=== PATIENT | female | born 1930 | race Caucasian/White ===

== ENCOUNTER 2018-08-16 17:26 | Emergency (ER) | payer OTHER ==
[~2018-08-16] VITALS: Ht 154.9 cm; Wt 65.8 kg
[~2018-08-16 17:26] MED LIST: ADULT LOW DOSE81 MG PO; ALLEGRA180 MG PO; COUMADIN4 MG PO; COZAAR25 MG PO; ISOSORBIDE DINI30 MG PO; LANOXIN250 MCG PO; LASIX20 MG PO; MUCINEX600 MG; OMEPRAZOLE MAGN20 MG PO; PHAZYME180 MG PO; SENOKOT8.6 MG PO; TENORMIN25 MG PO; VERAMYST10 GM; ZOCOR20 MG PO; ZOLOFT25 MG PO
--- OUTSIDE RECORDS SUMMARY | 2018-08-16 17:29 | XMS REPORT ---
Author Author [facility] Address Unknown Phone Unavailable Care Team Providers Care Warranty Manager Name Role Phone ALY TREVIÑO Unavailable Unavailable Payers Payer Name Policy Type Policy Number Effective Date Expiration Date Problems This patient has no known problems. Allergies, Adverse Reactions, Alerts Allergy Name Allergy Type Status Severity Reaction(s) Onset Date Inactive Date Treating Clinician Comments estrogens, conjugated DA Active MO 2018-04-25 00:00:00 codeine DA Active MO 2018-04-25 00:00:00 prednisone DA Active MO 2018-04-25 00:00:00 neomycin DA Active U 2018-04-25 00:00:00 bacitracin DA Active U 2018-04-25 00:00:00 clavulanic acid DA Active MO 2018-04-25 00:00:00 pravastatin DA Active U 2018-04-25 00:00:00 amoxicillin DA Active MO 2018-04-25 00:00:00 estrogens, conjugated DA Active MO 2017-12-25 00:00:00 codeine DA Active MO 2017-12-25 00:00:00 prednisone DA Active MO 2017-12-25 00:00:00 neomycin DA Active U 2017-12-25 00:00:00 bacitracin DA Active U 2017-12-25 00:00:00 clavulanic acid DA Active MO 2017-12-25 00:00:00 pravastatin DA Active U 2017-12-25 00:00:00 amoxicillin DA Active MO 2017-12-25 00:00:00 Medications This patient has no known medications. Results Test Description Test Time Test Comments Text Results Atomic Results Result Comments - XR SHOULDER 2 + V LT 2018-07-26 07:22:00 FAX: Evan Del Rosario MD [phone] [place]: St: REG Name: MARIANELA VALENTIN [facility] : 1930 Age/S: 88/F [address] [place] [address] Unit #: [id number] Loc: [place] [address] Phys: Evan Del Rosario MD Acct: [id number] Dis Date: Status: REG ER PHONE #: [phone] Exam Date: 07/26/2018713 FAX #: [phone] Reason: pain after fall EXAMS: CPT CODE: [id number] XR SHOULDER 2 + V LT [id number] Study: - XR SHOULDER 2 + V LT 07/26/2018 7:00 AM Patient Name: MARIANELA VALENTIN MR: [id number] DATE: 07/26/2018 7:00 AM : 1930; Age: 88 years y/o Female Ordering Physician: Evan Del Rosario MD Clinical Indication: pain after fall Comparison: Chest April 25, 2018 LEFT SHOULDER, 3 Views: Degenerative osteophyte is again seen along the inferior margin of the humeral head. No definite acute fracture or dislocation. Osteopenia. If there is further concern, recommend follow-up CT or MRI for complete assessment. SL: [id number] at 0722 Reported and signed by: Opal Pierce D.O. CC: Evan Del Rosario MD Technologist: RT Isiah(Arun) Trnscrd Date/Time/By: 07/26/2018 (721) : By: Jose [email or web address] Orig Print D/T: S: 07/26/2018 (0725) PAGE 1 Signed Report - CT HEAD/BRAIN W/O CONT 2018-07-26 06:07:00 Name: MARIANELA VALENTIN : 1930 Age/S: 88 / F [address] [place] [address] Unit #: [id number] Loc: [place] [address] Phys: Inocencio Ellison MD Acct: [id number] Dis Date: Status: PRE ER PHONE #: [phone] Exam Date: 07/26/2018 0551 FAX #: [phone] Reason: pain with trauma EXAMS: CPT CODE: [id number] CT HEAD/BRAIN W/O CONT [id number] EXAM: CT, CT head/brain without contrast: 3 12/26/2018 HISTORY: pain with trauma COMPARISON: 04/25/2018. TECHNIQUE: CT images were obtained from the foramen magnum to the vertex without the use of intravenous contrast on a multidetector CT. CT imaging was performed with exposure control parameters to reduce radiation dose. Coronal and sagittal reconstructions were obtained. CT radiation dose DLP: 419.70 mGy-cm FINDINGS: Beam hardening artifact limits the optimal evaluation of base of brain and posterior fossa. BRAIN PARENCHYMA: Mild diffuse brain atrophy seen. Moderately severe nonspecific low density in bilateral periventricular white matter, most likely due to chronic small vessel ischemic changes No focal mass lesions on this noncontrast head CT. No mass effect, midline shift or edema. There are no intra-axial or extra- axial fluid collections, intraventricular or intraparenchymal hemorrhage. No low attenuation demarcating areas on this non-contrast CT to suggest subacute stroke. Calcified plaques are seen in the intracranial internal carotid arteries VENTRICLES: The lateral ventricles, third and fourth ventricles appear unremarkable. The basilar cisterns are normal. ORBITS, MASTOIDS AND PARANASAL SINUSES: The visualized orbits are unremarkable. Mild mucosal thickening and fluid in bilateral ethmoid sinuses. The mastoid air cells are clear. SKULL: There are no osseous abnormalities. If there is further concern for intracranial pathology or acute stroke, MRI of the brain may be performed for complete assessment. IMPRESSION: PAGE 1 Signed Report (CONTINUED) Name: MARIANELA VALENTIN : 1930 Age/S: 88 / F [address] [place] [address] Blvd Unit #: [id number] Loc: [place] [address] Phys: Inocencio Ellison MD Acct: [id number] Dis Date: Status: PRE ER PHONE #: [phone] Exam Date: 07/26/2018 0551 FAX #: [phone] Reason: pain with trauma EXAMS: CPT CODE: [id number] CT HEAD/BRAIN W/O CONT [id number] <Continued> 1. No acute intracranial abnormality. No noncontrast CT evidence of mass, hemorrhage or subacute stroke. 2. Moderately severe chronic small vessel ischemic changes. Mild diffuse atrophy. 3. Mild bilateral ethmoid sinusitis, probably chronic. SL: LALA at 0607 Reported and signed by: Tim Washington M.D. CC: Inocencio Ellison MD Technologist:RT Shanna(R) CTDI: DLP: Trnscb Date/Time: 07/26/2018 (06) [email or web address] Orig Print D/T: S: 07/26/2018 (609) CTDI: DLP: PAGE 2 Signed Report PROTHROMBIN TIME/INR 2018-04-13 05:44:00 PROTIME (BEAKER) (test vkze=988) 21.5 seconds 11.7-14.7 INR (BEAKER) (test ispv=583) 1.9 <=5.9 RECOMMENDED COUMADIN/WARFARIN INR THERAPY RANGESSTANDARD DOSE: 2.0 - 3.0 Inclu renée: PROPHYLAXIS for venous thrombosis, systemic embolization; TREATMENT for torsten ous thrombosis and/or pulmonary embolus.HIGH RISK: Target INR is 2.5-3.5 for pat ients with mechanical heart valves.PROTHROMBIN TIME/[id number] 05:13:00* Test Item Value Reference Range Comments PROTIME (BEAKER) (test tubq=977) 25.5 seconds 11.7-14.7 INR (BEAKER) (test bjej=735) 2.3 <=5.9 RECOMMENDED COUMADIN/WARFARIN INR THERAPY RANGESSTANDARD DOSE: 2.0 - 3.0 Inclu renée: PROPHYLAXIS for venous thrombosis, systemic embolization; TREATMENT for torsten ous thrombosis and/or pulmonary embolus.HIGH RISK: Target INR is 2.5-3.5 for pat ients with mechanical heart valves.BASIC METABOLIC [id number] 06:03:00* Test Item Value Reference Range Comments SODIUM (BEAKER) (test vaaz=035) 132 meq/L 136-145 POTASSIUM (BEAKER) (test nxlz=422) 4.2 meq/L 3.5-5.1 CHLORIDE (BEAKER) (test spdv=103) 99 meq/L 98-107 CO2 (BEAKER) (test oaqz=891) 25 meq/L 22-29 BLOOD UREA NITROGEN (BEAKER) (test izdw=312) 15 mg/dL 7-21 CREATININE (BEAKER) (test qsuo=234) 0.83 mg/dL 0.57-1.25 GLUCOSE RANDOM (BEAKER) (test vfsu=354) 88 mg/dL 70-105 CALCIUM (BEAKER) (test grlb=321) 8.8 mg/dL 8.4-10.2 EGFR (BEAKER) (test ffgc=8361) 65 mL/min/1.73 sq m ESTIMATED GFR IS NOT ACCURATE CREATININE CLEARANCE IN PREDICTING GLOMERULAR FILTRATION RATE. ESTIMATED GFR IS NOT APPLICABLE FOR DIALYSIS PATIENTS. PROTHROMBIN TIME/[id number] 05:56:00* Test Item Value Reference Range Comments PROTIME (BEAKER) (test faci=777) 29.1 seconds 11.7-14.7 INR (BEAKER) (test scby=402) 2.8 <=5.9 RECOMMENDED COUMADIN/WARFARIN INR THERAPY RANGESSTANDARD DOSE: 2.0 - 3.0 Inclu renée: PROPHYLAXIS for venous thrombosis, systemic embolization; TREATMENT for torsten ous thrombosis and/or pulmonary embolus.HIGH RISK: Target INR is 2.5-3.5 for pat ients with mechanical heart valves.CBC W/PLT COUNT & AUTO [id number] 05:39:00* Test Item Value Reference Range Comments WHITE BLOOD CELL COUNT (BEAKER) (test mnzo=327) 7.9 K/ L 3.5-10.5 RED BLOOD CELL COUNT (BEAKER) (test gnkg=964) 3.72 M/ L 3.93-5.22 HEMOGLOBIN (BEAKER) (test dgyz=187) 11.4 GM/DL 11.2-15.7 HEMATOCRIT (BEAKER) (test wxzs=627) 34.6 % 34.1-44.9 MEAN CORPUSCULAR VOLUME (BEAKER) (test vvic=947) 93.0 fL 79.4-94.8 MEAN CORPUSCULAR HEMOGLOBIN (BEAKER) (test spdt=494) 30.6 pg 25.6-32.2 MEAN CORPUSCULAR HEMOGLOBIN CONC (BEAKER) (test lepf=440) 32.9 GM/DL 32.2-35.5 RED CELL DISTRIBUTION WIDTH (BEAKER) (test csbr=848) 13.7 % 11.7-14.4 PLATELET COUNT (BEAKER) (test pnxf=793) 247 K/CU MM 150-450 MEAN PLATELET VOLUME (BEAKER) (test scoa=883) 9.5 fL 9.4-12.3 NUCLEATED RED BLOOD CELLS (BEAKER) (test flgw=544) 0 /100 WBC 0-0 NEUTROPHILS RELATIVE PERCENT (BEAKER) (test dihc=145) 55 % LYMPHOCYTES RELATIVE PERCENT (BEAKER) (test lcwu=746) 30 % MONOCYTES RELATIVE PERCENT (BEAKER) (test hwdy=601) 9 % EOSINOPHILS RELATIVE PERCENT (BEAKER) (test daxg=235) 5 % BASOPHILS RELATIVE PERCENT (BEAKER) (test lddo=190) 1 % NEUTROPHILS ABSOLUTE COUNT (BEAKER) (test tcgz=632) 4.35 K/ L 1.56-6.13 LYMPHOCYTES ABSOLUTE COUNT (BEAKER) (test ljxt=582) 2.38 K/ L 1.18-3.74 MONOCYTES ABSOLUTE COUNT (BEAKER) (test byth=843) 0.69 K/ L 0.24-0.36 EOSINOPHILS ABSOLUTE COUNT (BEAKER) (test zyom=408) 0.43 K/ L 0.04-0.36 BASOPHILS ABSOLUTE COUNT (BEAKER) (test lzwi=505) 0.07 K/ L 0.01-0.08 IMMATURE GRANULOCYTES-RELATIVE PERCENT (BEAKER) (test srwt=4867) 0 % 0-1 PROTHROMBIN TIME/[id number] 06:11:00* Test Item Value Reference Range Comments PROTIME (BEAKER) (test kwdp=201) 26.2 seconds 11.7-14.7 INR (BEAKER) (test sqew=434) 2.4 <=5.9 RECOMMENDED COUMADIN/WARFARIN INR THERAPY RANGESSTANDARD DOSE: 2.0 - 3.0 Inclu renée: PROPHYLAXIS for venous thrombosis, systemic embolization; TREATMENT for torsten ous thrombosis and/or pulmonary embolus.HIGH RISK: Target INR is 2.5-3.5 for pat ients with mechanical heart valves.CT, EXTREMITY, LOWER WITHOUT CONTRAST, RIGHT 2018 08:17:00FINAL REPORT INDICATION:88-year-old female with right hip pain after trauma. COMPARISON: Right hip radiograph one view April 08, 2018 TECHNIQUE: CT of the right lower extremity (hip) was performed WITHOUT contrast. The exam was performed according to our department dose-optimization protocol, which includes automated exposure control, adjustments of mA and kV according to patient size. Iterative reconstructions are also sometimes employed. FINDINGS / IMPRESSION:There is an incomplete fracture of the anterior cortex at the right femoral head neck junction. There is near-complete loss of right hip joint space without bone on bone contact. Femoral head osteophyte formation and anterior acetabular subchondral cyst formation is noted. Muscles and tendons of the right hip are grossly intact. Calcified atherosclerotic plaque of the right common femoral artery is noted. Signed: Adal Ramírez MDReport Verified Date/Time: 2018 08:17:16 Reading Location: [address] Ortho Consult Reading Room C METABOLIC PANEL 2018 06:50:00* Test Item Value Reference Range Comments SODIUM (BEAKER) (test jhyq=412) 133 meq/L 136-145 POTASSIUM (BEAKER) (test uxil=028) 4.3 meq/L 3.5-5.1 CHLORIDE (BEAKER) (test pvyj=040) 101 meq/L 98-107 CO2 (BEAKER) (test bfge=358) 27 meq/L 22-29 BLOOD UREA NITROGEN (BEAKER) (test aonl=785) 14 mg/dL 7-21 CREATININE (BEAKER) (test ijcx=724) 0.82 mg/dL 0.57-1.25 GLUCOSE RANDOM (BEAKER) (test jgzm=090) 84 mg/dL 70-105 CALCIUM (BEAKER) (test jjyu=530) 9.1 mg/dL 8.4-10.2 EGFR (BEAKER) (test quis=8149) 66 mL/min/1.73 sq m ESTIMATED GFR IS NOT ACCURATE CREATININE CLEARANCE IN PREDICTING GLOMERULAR FILTRATION RATE. ESTIMATED GFR IS NOT APPLICABLE FOR DIALYSIS PATIENTS. PROTHROMBIN TIME/[id number] 05:32:00* Test Item Value Reference Range Comments PROTIME (BEAKER) (test plpp=209) 25.5 seconds 11.7-14.7 INR (BEAKER) (test unbj=651) 2.3 <=5.9 RECOMMENDED COUMADIN/WARFARIN INR THERAPY RANGESSTANDARD DOSE: 2.0 - 3.0 Inclu renée: PROPHYLAXIS for venous thrombosis, systemic embolization; TREATMENT for torsten ous thrombosis and/or pulmonary embolus.HIGH RISK: Target INR is 2.5-3.5 for pat ients with mechanical heart valves.CBC W/PLT COUNT & AUTO [id number] 05:27:00* Test Item Value Reference Range Comments WHITE BLOOD CELL COUNT (BEAKER) (test oqaz=302) 8.5 K/ L 3.5-10.5 RED BLOOD CELL COUNT (BEAKER) (test ksha=500) 3.84 M/ L 3.93-5.22 HEMOGLOBIN (BEAKER) (test oeeo=260) 11.8 GM/DL 11.2-15.7 HEMATOCRIT (BEAKER) (test ceqb=018) 35.9 % 34.1-44.9 MEAN CORPUSCULAR VOLUME (BEAKER) (test alni=926) 93.5 fL 79.4-94.8 MEAN CORPUSCULAR HEMOGLOBIN (BEAKER) (test zgdo=533) 30.7 pg 25.6-32.2 MEAN CORPUSCULAR HEMOGLOBIN CONC (BEAKER) (test fbqn=149) 32.9 GM/DL 32.2-35.5 RED CELL DISTRIBUTION WIDTH (BEAKER) (test khic=118) 13.9 % 11.7-14.4 PLATELET COUNT (BEAKER) (test byes=207) 260 K/CU MM 150-450 MEAN PLATELET VOLUME (BEAKER) (test egwo=241) 9.6 fL 9.4-12.3 NUCLEATED RED BLOOD CELLS (BEAKER) (test jkiu=777) 0 /100 WBC 0-0 NEUTROPHILS RELATIVE PERCENT (BEAKER) (test vvku=837) 64 % LYMPHOCYTES RELATIVE PERCENT (BEAKER) (test yvsi=893) 24 % MONOCYTES RELATIVE PERCENT (BEAKER) (test tfuo=717) 7 % EOSINOPHILS RELATIVE PERCENT (BEAKER) (test gain=033) 4 % BASOPHILS RELATIVE PERCENT (BEAKER) (test ghxa=925) 1 % NEUTROPHILS ABSOLUTE COUNT (BEAKER) (test ldak=919) 5.40 K/ L 1.56-6.13 LYMPHOCYTES ABSOLUTE COUNT (BEAKER) (test unhx=632) 2.05 K/ L 1.18-3.74 MONOCYTES ABSOLUTE COUNT (BEAKER) (test xnet=119) 0.61 K/ L 0.24-0.36 EOSINOPHILS ABSOLUTE COUNT (BEAKER) (test zltp=144) 0.34 K/ L 0.04-0.36 BASOPHILS ABSOLUTE COUNT (BEAKER) (test wbuw=253) 0.05 K/ L 0.01-0.08 IMMATURE GRANULOCYTES-RELATIVE PERCENT (BEAKER) (test uvlp=4429) 0 % 0-1 CT, BRAIN, WITHOUT [id number] 21:42:00FINAL REPORT EXAMINATION NONCONTRAST HEAD CT SCAN CLINICAL HISTORY:Headache, traumatic injury. COMPARISON CT: 04/07/2018 EPISODE OF CARE: Initial TECHNIQUE: Axial tomographic images were obtained through the brain from the vertex to the skull base without intravenous contrast. The exam was performed according to our departmental dose optimization program which includes automated exposure control, adjustment of the mA and/or kV according to patient's size and/or use of iterative reconstructive technique. FINDINGS: Generalized volume loss, extensive deep white matter changes, small white nuclei lacunar infarcts and intracranial calcific atherosclerosis are again noted. No evidence of acute intracranial hemorrhage, mass effect, cerebral edema, midline shift, hydroceph alus or abnormal extra-axial fluid collection. Although there are no definite fi ndings to suggest evolving ischemic injury, see the is not sensitive for the det ection of early or small infarcts. Minimal mucosal thickening is again noted inv olving the ethmoid air cells. The tympanic cavities and mastoid air cells are we ll pneumatized. There are bilateral minimally displaced mildly depressed nasal b one fractures, chronicity indeterminate. Mandibular condyles project anatomicall y. Degenerative osteoarthritic changes are again noted at the temporal mandibula r joints. IMPRESSION: No specific evidence of an acute intracranial process. Ernie ateral nasal bone fractures, chronicity indeterminate. Chronic findings as detai led above. Signed: Zeferino Rodriguez Verified Date/Time: 04/08/2018 21:42:2 0 Reading Location: [address] Reading Room Electronically sig carline by: ZEFERINO RODRIGUEZ M.D. on 04/08/2018 09:42 PM RAD, HIP, 1 VIEW, RIGHT 2018-04-08 21:20:00Reason for exam:->post fallpatient c/o r hip painFINAL REPORT Right hip 1 view 04/08/2018 at 2031 CLINICAL HISTORY: post fall COMPARISON: None available IMPRESSION: There is no evident fracture or malalignment, although absence of an orthogonal view does not allow for complete exclusion of nondisplaced fracture. There are no osteolytic or osteoblastic lesions. 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 The visualized soft tissue is unremarkable. If there is persistent clinical concern for acute abnormality, further evaluation with CT is recommended. Swetha d: Andrzej Monson Verified Date/Time: 04/08/2018 21:20:36 Reading Loc ation: [facility] Radiology Reading Room , CHEST, 1 VIEW, NON [id number] 20:55:00Reason for exam:->post fallShould this be performed at the bedside?->Yes FINAL REPORT Chest, 1 view, 04/08/2018 8:50 PM. History: Fall. Comparison: 04/07/2018. Discussion: The cardiomediastinal silhouette and pulmonary vasculature are within normal limits for a portable exam. There is ca lcification of the aortic knob. There is biapical pleural thickening. Linear opa cities are present at the right lung base. The lungs are otherwise clear without evidence of consolidation or effusion. There is no evidence of a pneumothorax. Left subclavian single lead pacer is present. The soft tissues and osseous struc tures are intact. IMPRESSION: No acute cardiopulmonary abnormality. Signed: Arnulfo Rivas MDReport Verified Date/Time: 04/08/2018 20:55:25 Reading Location: [facility] B1 C013W Consult Reading Room AWAKE AND [id number] 14:48:00Reason for exam:->episode of right leg weaknessShould this be performed at the bedside?-> YesDate(s) of EE04/08/2018 DATE OF REPORT: 04/08/2018 ACC: [id number] EEG Number: [id number] Start time: 2:05 PM Stop time: 2:26 PM ICD-10: R56.9 CPT Code: 08788 HISTORY: 87 year old female with history of prior stroke with residual deficit, who presents with right sided weakness and leaning to right side. She has URI. MEDICATIONS THAT COULD AFFECT EEG: Zoloft TECHNICAL SUMMARY: This is a digital video-EEG recorded with 32 input channels reviewed with bipolar and referential montages using the modified combinatorial system nomenclature. DESCRIPTION OF RECORD: During the maximally alert state, a 9 Hz posterior dominant rhythm was seen that was symmetric, reactive to eye opening and well regulated. More anteriorly, low voltage frontocentral beta predominated. Drowsiness was characterized by alpha attenuation and increased frontocentral theta. Stage 2 sleep was captured, including symmetric sleep spindles. SIGNIFICANT VIDEO EVENTS: none SIGNIFICANT ELECTROCARDIOGRAM EVENTS: None HV: Hyperventilation was not performed. PHOTIC STIMULATION: Photic stimulation was not performed. IMPRESSION: Normal Awake and Asleep EEG. CLINICAL CORRELATION: An EEG without epileptiform discharges does not exclude the possibility of epilepsy. If the clinical suspicion of epilepsy remains, consider additional EEG recordings. Gill Paul MD Neurophysiology Attending HROMBIN TIME/[id number] 13:01:00* Test Item Value Reference Range Comments PROTIME (BEAKER) (test rwax=782) 25.1 seconds 11.7-14.7 INR (BEAKER) (test eihj=529) 2.3 <=5.9 RECOMMENDED COUMADIN/WARFARIN INR THERAPY RANGESSTANDARD DOSE: 2.0 - 3.0 Inclu renée: PROPHYLAXIS for venous thrombosis, systemic embolization; TREATMENT for torsten ous thrombosis and/or pulmonary embolus.HIGH RISK: Target INR is 2.5-3.5 for pat ients with mechanical heart valves.TROPONIN [id number] 10:13:00* Test Item Value Reference Range Comments TROPONIN I (BEAKER) (test mwbk=570) 0.04 ng/mL 0.00-0.03 CREATINE KINASE (CK)2018-04-08 10:08:00* Test Item Value Reference Range Comments CREATINE KINASE TOTAL (BEAKER) (test myjs=888) 75 U/L 29-200 BASIC METABOLIC [id number] 05:01:00* Test Item Value Reference Range Comments SODIUM (BEAKER) (test yabx=105) 131 meq/L 136-145 POTASSIUM (BEAKER) (test ubqt=996) 4.5 meq/L 3.5-5.1 Specimen slightly hemolyzed CHLORIDE (BEAKER) (test uyal=459) 100 meq/L 98-107 CO2 (BEAKER) (test ufus=512) 25 meq/L 22-29 BLOOD UREA NITROGEN (BEAKER) (test suad=701) 13 mg/dL 7-21 CREATININE (BEAKER) (test rupz=282) 0.81 mg/dL 0.57-1.25 Specimen slightly hemolyzed GLUCOSE RANDOM (BEAKER) (test myrt=076) 89 mg/dL 70-105 CALCIUM (BEAKER) (test qjdj=048) 9.2 mg/dL 8.4-10.2 EGFR (BEAKER) (test vznm=6755) 67 mL/min/1.73 sq m ESTIMATED GFR IS NOT ACCURATE CREATININE CLEARANCE IN PREDICTING GLOMERULAR FILTRATION RATE. ESTIMATED GFR IS NOT APPLICABLE FOR DIALYSIS PATIENTS. FastingLIPID [id number] 05:01:00* Test Item Value Reference Range Comments TRIGLYCERIDES (BEAKER) (test khqq=036) 70 mg/dL Specimen slightly hemolyzed CHOLESTEROL (BEAKER) (test vwnu=026) 130 mg/dL Specimen slightly hemolyzed HDL CHOLESTEROL (BEAKER) (test cqfv=298) 50 mg/dL LDL CHOLESTEROL CALCULATED (BEAKER) (test kusk=527) 66 mg/dL Triglyceride Reference Range: Low Risk <150 Borderline 150-199 High Risk 200-499 Very High Risk >=500Cholesterol Reference Range: Low Risk <200 Borderline 200-239 High Risk >240HDL Cholesterol Reference Range: Low Risk >=60 High Risk <40LDL Cholesterol Reference Range: Optimal <100 Near Optimal 100-129 Borderline 130-159 High 160-189 Very High >=190 Fasting CBC W/PLT COUNT & AUTO [id number] 04:44:00* Test Item Value Reference Range Comments WHITE BLOOD CELL COUNT (BEAKER) (test ycfp=986) 8.1 K/ L 3.5-10.5 RED BLOOD CELL COUNT (BEAKER) (test keft=975) 3.49 M/ L 3.93-5.22 HEMOGLOBIN (BEAKER) (test fyxq=092) 10.8 GM/DL 11.2-15.7 HEMATOCRIT (BEAKER) (test wjbt=494) 32.4 % 34.1-44.9 MEAN CORPUSCULAR VOLUME (BEAKER) (test fibz=565) 92.8 fL 79.4-94.8 MEAN CORPUSCULAR HEMOGLOBIN (BEAKER) (test pgyg=915) 30.9 pg 25.6-32.2 MEAN CORPUSCULAR HEMOGLOBIN CONC (BEAKER) (test jakx=570) 33.3 GM/DL 32.2-35.5 RED CELL DISTRIBUTION WIDTH (BEAKER) (test gnur=045) 13.8 % 11.7-14.4 PLATELET COUNT (BEAKER) (test xsks=222) 219 K/CU MM 150-450 MEAN PLATELET VOLUME (BEAKER) (test qdnn=464) 9.9 fL 9.4-12.3 NUCLEATED RED BLOOD CELLS (BEAKER) (test yuba=900) 0 /100 WBC 0-0 NEUTROPHILS RELATIVE PERCENT (BEAKER) (test hazr=630) 58 % LYMPHOCYTES RELATIVE PERCENT (BEAKER) (test soxw=544) 28 % MONOCYTES RELATIVE PERCENT (BEAKER) (test wzkd=275) 8 % EOSINOPHILS RELATIVE PERCENT (BEAKER) (test emfo=385) 4 % BASOPHILS RELATIVE PERCENT (BEAKER) (test glgy=790) 1 % NEUTROPHILS ABSOLUTE COUNT (BEAKER) (test bumm=242) 4.71 K/ L 1.56-6.13 LYMPHOCYTES ABSOLUTE COUNT (BEAKER) (test naas=992) 2.26 K/ L 1.18-3.74 MONOCYTES ABSOLUTE COUNT (BEAKER) (test tuhv=303) 0.67 K/ L 0.24-0.36 EOSINOPHILS ABSOLUTE COUNT (BEAKER) (test zxzr=584) 0.33 K/ L 0.04-0.36 BASOPHILS ABSOLUTE COUNT (BEAKER) (test lcbc=881) 0.07 K/ L 0.01-0.08 IMMATURE GRANULOCYTES-RELATIVE PERCENT (BEAKER) (test vylh=3954) 0 % 0-1 URINALYSIS W/ [id number] 22:42:00* Test Item Value Reference Range Comments COLOR (BEAKER) (test wias=169) Yellow CLARITY (BEAKER) (test nmvw=538) Clear SPECIFIC GRAVITY UA (BEAKER) (test fwkg=574) 1.006 1.001-1.035 PH UA (BEAKER) (test kdqw=792) 6.5 5.0-8.0 PROTEIN UA (BEAKER) (test rwvq=374) Negative Negative GLUCOSE UA (BEAKER) (test pbys=985) Negative Negative KETONES UA (BEAKER) (test gwzw=357) Negative Negative BILIRUBIN UA (BEAKER) (test rnlh=192) Negative Negative BLOOD UA (BEAKER) (test bhwa=894) Negative Negative NITRITE UA (BEAKER) (test lycy=167) Negative Negative LEUKOCYTE ESTERASE UA (BEAKER) (test obsw=014) Small Negative UROBILINOGEN UA (BEAKER) (test xmxz=252) 0.2 mg/dL 0.2-1.0 RBC UA (BEAKER) (test audj=612) 1 /HPF WBC UA (BEAKER) (test ytec=945) 2 /HPF SQUAMOUS EPITHELIAL (BEAKER) (test icnx=160) 1 /HPF SOURCE(BEAKER) (test fwmo=0394) Urine, Voided TROPONIN [id number] 22:24:00* Test Item Value Reference Range Comments TROPONIN I (BEAKER) (test mczr=152) 0.09 ng/mL 0.00-0.03 RAD, CHEST, 1 VIEW, NON [id number] 16:51:00Reason for exam:->EXTREMITY WEAKNESSFINAL REPORT INDICATION: EXTREMITY WEAKNESS COMPARISON: July 11, 2005 TECHNIQUE: Single frontal view of the chest. FINDINGS: Lungs and pleura: Clear lungs. No effusion.Heart and mediastinum: Normal heart size. Unremarkable mediastinal contours.Osseous structures: No acute abnormality.Other: None. IMPRESSION: No acute intrathoracic abnormality. Signed: JR Tiffanie, Ashish SUAREZeport Verified Date/Time: 04/07/2018 16:51:50 Reading Location: [address] Consult Reading Room B-TYPE NATRIURETIC FACTOR (BNP)2018-04-07 16:48:00* Test Item Value Reference Range Comments B-TYPE NATRIURETIC PEPTIDE (BEAKER) (test assu=549) 576 pg/mL 0-100 TROPONIN [id number] 16:46:00* Test Item Value Reference Range Comments TROPONIN I (BEAKER) (test wwza=340) 0.04 ng/mL 0.00-0.03 [id number] 16:38:00* Test Item Value Reference Range Comments MAGNESIUM (BEAKER) (test ojyg=620) 2.1 mg/dL 1.6-2.6 BASIC METABOLIC [id number] 16:38:00* Test Item Value Reference Range Comments SODIUM (BEAKER) (test qqsx=045) 132 meq/L 136-145 POTASSIUM (BEAKER) (test yeub=088) 4.9 meq/L 3.5-5.1 CHLORIDE (BEAKER) (test xnzx=874) 98 meq/L 98-107 CO2 (BEAKER) (test hedt=765) 29 meq/L 22-29 BLOOD UREA NITROGEN (BEAKER) (test lfll=180) 16 mg/dL 7-21 CREATININE (BEAKER) (test tvoj=481) 1.00 mg/dL 0.57-1.25 GLUCOSE RANDOM (BEAKER) (test ivhk=674) 94 mg/dL 70-105 CALCIUM (BEAKER) (test cadi=784) 9.9 mg/dL 8.4-10.2 EGFR (BEAKER) (test kehm=6918) 52 mL/min/1.73 sq m ESTIMATED GFR IS NOT ACCURATE CREATININE CLEARANCE IN PREDICTING GLOMERULAR FILTRATION RATE. ESTIMATED GFR IS NOT APPLICABLE FOR DIALYSIS PATIENTS. PT/[id number] 16:38:00* Test Item Value Reference Range Comments PROTIME (BEAKER) (test mxfg=591) 23.6 seconds 11.7-14.7 INR (BEAKER) (test ynnk=409) 2.1 <=5.9 PARTIAL THROMBOPLASTIN TIME (BEAKER) (test yqmv=567) 35.1 seconds 22.5-36.0 RECOMMENDED COUMADIN/WARFARIN INR THERAPY RANGESSTANDARD DOSE: 2.0 - 3.0 Inclu renée: PROPHYLAXIS for venous thrombosis, systemic embolization; TREATMENT for torsten ous thrombosis and/or pulmonary embolus.HIGH RISK: Target INR is 2.5-3.5 for pat ients with mechanical heart valves.CT, BRAIN, WITHOUT [id number] 16:34:00Reason for exam:->right leg weaknessWhat is the patient's sedation requirement?->No SedationFINAL REPORT CT head without contrast 04/07/2018 4:32 PM CLINICAL HISTORY: Sensation loss, right leg weakness TECHNIQUE: Axial noncontrast CT images through the head were obtained. This examination was performed according to our departmental dose optimization program, which includes automated exposure control, adjustment of the mA and/or kV according to patient size, and/or use of iterated reconstruction technique. COMPARISON: None available FINDINGS: There is no hemorrhage, extra-axial collection, mass, hydrocephalus, or midline shift. There is relatively extensive microvascular ischemia in the supratentorial white matter, deep white nuclei, and radha. There is atherosclerotic calcification of the intracranial arterial vasculature. There is generalized parenchymal volume loss. The visualized paranasal sinuses and mastoid air cells are well aerated. The skull is intact. IMPRESSION: No intracranial hemorrhage or mass effect. Microvascular ischemia, which can be further characterized with MRI if clinically indicated. Signed: Andrzej Monson Verified Date/Time: 04/07/2018 16:34:47 Reading Location: [facility] Radiology Reading Room W/PLT COUNT & AUTO [id number] 16:25:00* Test Item Value Reference Range Comments WHITE BLOOD CELL COUNT (BEAKER) (test nlow=353) 9.4 K/ L 3.5-10.5 RED BLOOD CELL COUNT (BEAKER) (test bxmp=675) 3.93 M/ L 3.93-5.22 HEMOGLOBIN (BEAKER) (test trry=654) 12.3 GM/DL 11.2-15.7 HEMATOCRIT (BEAKER) (test rbyu=659) 37.1 % 34.1-44.9 MEAN CORPUSCULAR VOLUME (BEAKER) (test hbxe=004) 94.4 fL 79.4-94.8 MEAN CORPUSCULAR HEMOGLOBIN (BEAKER) (test nufg=590) 31.3 pg 25.6-32.2 MEAN CORPUSCULAR HEMOGLOBIN CONC (BEAKER) (test vqfl=667) 33.2 GM/DL 32.2-35.5 RED CELL DISTRIBUTION WIDTH (BEAKER) (test omxo=265) 13.8 % 11.7-14.4 PLATELET COUNT (BEAKER) (test lqwl=658) 244 K/CU MM 150-450 MEAN PLATELET VOLUME (BEAKER) (test zwab=283) 9.5 fL 9.4-12.3 NUCLEATED RED BLOOD CELLS (BEAKER) (test vwqn=491) 0 /100 WBC 0-0 NEUTROPHILS RELATIVE PERCENT (BEAKER) (test akub=734) 70 % LYMPHOCYTES RELATIVE PERCENT (BEAKER) (test zjig=580) 20 % MONOCYTES RELATIVE PERCENT (BEAKER) (test gwev=551) 8 % EOSINOPHILS RELATIVE PERCENT (BEAKER) (test khfk=844) 2 % BASOPHILS RELATIVE PERCENT (BEAKER) (test sdmq=681) 1 % NEUTROPHILS ABSOLUTE COUNT (BEAKER) (test rekr=625) 6.56 K/ L 1.56-6.13 LYMPHOCYTES ABSOLUTE COUNT (BEAKER) (test dmez=733) 1.87 K/ L 1.18-3.74 MONOCYTES ABSOLUTE COUNT (BEAKER) (test tjdf=692) 0.72 K/ L 0.24-0.36 EOSINOPHILS ABSOLUTE COUNT (BEAKER) (test jqts=038) 0.20 K/ L 0.04-0.36 BASOPHILS ABSOLUTE COUNT (BEAKER) (test beqg=462) 0.05 K/ L 0.01-0.08 IMMATURE GRANULOCYTES-RELATIVE PERCENT (BEAKER) (test pxrt=3864) 0 % 0-1
--- OUTSIDE RECORDS SUMMARY | 2018-08-16 17:29 | XMS REPORT | Clinical Summary ---
Author Author TONY Urban RemedyBenewah Community HospitalGuam Pak ExpressForrest City Medical CenterProject InsidersProvidence Centralia [facility] Address Unknown Phone Unavailable Care Team Providers Care Web Ui Software Engineer Name Role Phone Redd Marquez MD PCP Unavailable Allergies Comments Active Allergy Reactions Severity Noted Date Amoxicillin-Pot 04/27/2013 Clavulanate Codeine 04/27/2013 Benzalkonium Chloride 04/27/2013 Pravastatin 04/27/2013 Medications End Date Status Medication Sig Dispensed Refills Start Date Active warfarin (COUMADIN) 4 MG Take 2 mg by 0 tablet mouth 4 3 (four) times a week Sat, sun, tu, th. Active losartan (COZAAR) 25 MG Take 25 mg by 0 tablet mouth nightly 3 . Active fluticasone (FLONASE) 50 2 sprays by 0 mcg/actuation nasal spray Nasal route 3 daily . Active atenolol (TENORMIN) 25 MG Take 25 mg by 0 tablet mouth nightly 3 . Active aspirin 81 MG EC tablet Take 81 mg by 0 mouth daily. Active sertraline (ZOLOFT) 50 MG Take 50 mg by 0 tablet mouth daily. Active simvastatin (ZOCOR) 40 MG Take 40 mg by 0 tablet mouth every other day. Active warfarin (COUMADIN) 4 MG Take 4 mg by 0 tablet mouth 3 (three) times a week Mon, wed, fri . Active bisacodyl (DULCOLAX) 5 mg Take 1 tablet 0 EC tablet (5 mg total) 8 by mouth daily as needed for Constipation. Active famotidine (PEPCID) 20 MG Take 1 tablet 0 tablet (20 mg total) 8 by mouth daily. 04/13/2019 Active senna-docusate (SENOKOT Take 1 tablet 0 12/04/201 S) 8.6-50 mg per tablet by mouth 8 every night as needed for Constipation. 04/07/2018 Discontinued simvastatin (ZOCOR) 80 MG 0 tablet 3 04/07/2018 Discontinued isosorbide mononitrate 0 (IMDUR) 30 MG 24 hr 3 tablet 04/07/2018 Discontinued furosemide (LASIX) 20 MG Take 20 mg by 0 tablet mouth daily . 3 04/07/2018 Discontinued omeprazole (PRILOSEC) 20 0 MG capsule 3 04/07/2018 Discontinued sertraline (ZOLOFT) 25 MG 0 tablet 3 Active Problems Problem Noted Date Traumatic closed nondisplaced fracture of neck of femur with routine 2018 healing, right Chronic diastolic heart failure 2018 Biatrial enlargement 2018 Moderate mitral regurgitation 2018 Moderate tricuspid regurgitation 2018 Elevated troponin resolved 04/08/2018 Hyponatremia resolved 04/08/2018 Fall during current hospitalization, initial encounter 04/08/2018 Right sided weakness resolved 04/07/2018 Redness of right eye resolved 04/07/2018 Viral upper respiratory tract infection 04/07/2018 Paroxysmal atrial fibrillation 04/07/2018 History of CVA with residual deficit 04/07/2018 Essential hypertension 04/07/2018 Coronary artery disease involving [place] coronary artery of [place] heart 04/07/2018 without angina pectoris Status cardiac pacemaker 04/07/2018 Bilateral leg edema 04/07/2018 Hyperlipidemia 04/07/2018 Depression 04/07/2018 Cognitive decline 04/07/2018 Resolved Problems Problem Noted Date Resolved Date Fracture of femoral neck, right 2018 2018 Physical deconditioning 04/07/2018 04/07/2018 Encounters Care Team Description Date Type Specialty 04/08/2018 Travel Juan Ramon Parker MD Quadri, Syed M., MD Right sided weakness (Primary Dx); Disorientation; Chest pain with high risk of acute coronary syndrome 04/07/2018 Hospital Cardiology - Encounter 04/13/2018 04/07/2018 Orders Only General Internal Medicine after 08/15/2017 Social History Date Tobacco Use Types Packs/Day Years Used Former Smoker Smokeless Tobacco: Never Used Comments: QUIT 64 YEARS AGO Alcohol Use Drinks/Week oz/Week Comments No Sex Assigned at Date Recorded Not on file Industry Job Start Date Occupation Not on file Not on file Not on file Travel End Travel History Travel Start No recent travel history available. Last Filed Vital Signs Time Taken Vital Sign Reading 04/13/2018 3:46 PM INTERNAL COMBUSTION ENGINE INSPECTOR Blood Pressure 158/70 04/13/2018 3:46 PM INTERNAL COMBUSTION ENGINE INSPECTOR Pulse 61 04/13/2018 3:46 PM INTERNAL COMBUSTION ENGINE INSPECTOR Temperature 36.7 C (98.1 F) 04/13/2018 3:46 PM INTERNAL COMBUSTION ENGINE INSPECTOR Respiratory Rate 19 04/13/2018 3:46 PM INTERNAL COMBUSTION ENGINE INSPECTOR Oxygen Saturation 95% - Inhaled Oxygen - Concentration 04/13/2018 5:57 AM INTERNAL COMBUSTION ENGINE INSPECTOR Weight 60.1 kg (132 lb 9.6 oz) 04/07/2018 11:00 PM INTERNAL COMBUSTION ENGINE INSPECTOR Height 154.9 cm (5' 1") 04/13/2018 5:57 AM INTERNAL COMBUSTION ENGINE INSPECTOR Body Mass Index 25.05 Plan of Treatment Not on file Procedures Comments Procedure Name Priority Date/Time Associated Diagnosis RHYTHM STRIP - SCAN 04/17/2018 2:00 PM INTERNAL COMBUSTION ENGINE INSPECTOR PROTHROMBIN TIME/INR Routine 04/13/2018 5:01 AM INTERNAL COMBUSTION ENGINE INSPECTOR PROTHROMBIN TIME/INR Routine 04/12/2018 4:42 AM INTERNAL COMBUSTION ENGINE INSPECTOR CBC W/PLT COUNT & AUTO Routine 04/11/2018 DIFFERENTIAL 5:00 AM INTERNAL COMBUSTION ENGINE INSPECTOR BASIC METABOLIC PANEL (7) Routine 04/11/2018 5:00 AM INTERNAL COMBUSTION ENGINE INSPECTOR CBC W/PLT COUNT & AUTO Routine 04/11/2018 DIFFERENTIAL 5:00 AM INTERNAL COMBUSTION ENGINE INSPECTOR PROTHROMBIN TIME/INR Routine 04/11/2018 5:00 AM INTERNAL COMBUSTION ENGINE INSPECTOR PROTHROMBIN TIME/INR Routine 04/10/2018 5:27 AM INTERNAL COMBUSTION ENGINE INSPECTOR ECHOCARDIOGRAM REPORT - 2018 SCAN 10:20 AM INTERNAL COMBUSTION ENGINE INSPECTOR CBC W/PLT COUNT & AUTO Routine 2018 DIFFERENTIAL 4:40 AM INTERNAL COMBUSTION ENGINE INSPECTOR BASIC METABOLIC PANEL (7) Routine 2018 4:40 AM INTERNAL COMBUSTION ENGINE INSPECTOR CBC W/PLT COUNT & AUTO Routine 2018 DIFFERENTIAL 4:40 AM INTERNAL COMBUSTION ENGINE INSPECTOR PROTHROMBIN TIME/INR Routine 2018 4:40 AM INTERNAL COMBUSTION ENGINE INSPECTOR CT LOWER EXTREMITY Routine 2018 WITHOUT CONTRAST RIGHT 4:28 AM INTERNAL COMBUSTION ENGINE INSPECTOR CT BRAIN WITHOUT IV STAT 04/08/2018 CONTRAST 9:36 PM INTERNAL COMBUSTION ENGINE INSPECTOR XR HIP RIGHT 1 VIEW STAT 04/08/2018 8:49 PM INTERNAL COMBUSTION ENGINE INSPECTOR XR CHEST 1 VIEW STAT 04/08/2018 PORTABLE/BEDSIDE 8:49 PM INTERNAL COMBUSTION ENGINE INSPECTOR EEG AWAKE AND DROWSY Routine 04/08/2018 2:37 PM INTERNAL COMBUSTION ENGINE INSPECTOR 2D ECHO W/ DOPPLER STAT 04/08/2018 (CW/PW/COLOR) 12:47 PM INTERNAL COMBUSTION ENGINE INSPECTOR PROTHROMBIN TIME/INR STAT 04/08/2018 12:42 PM INTERNAL COMBUSTION ENGINE INSPECTOR CREATINE KINASE (CK) Routine 04/08/2018 9:19 AM INTERNAL COMBUSTION ENGINE INSPECTOR TROPONIN I STAT 04/08/2018 9:19 AM INTERNAL COMBUSTION ENGINE INSPECTOR CBC W/PLT COUNT & AUTO Routine 04/08/2018 DIFFERENTIAL 4:06 AM INTERNAL COMBUSTION ENGINE INSPECTOR CBC W/PLT COUNT & AUTO Routine 04/08/2018 DIFFERENTIAL 4:06 AM INTERNAL COMBUSTION ENGINE INSPECTOR LIPID PANEL Routine 04/08/2018 4:06 AM INTERNAL COMBUSTION ENGINE INSPECTOR BASIC METABOLIC PANEL (7) Routine 04/08/2018 4:06 AM INTERNAL COMBUSTION ENGINE INSPECTOR URINALYSIS W/ MICROSCOPIC STAT 04/07/2018 10:22 PM INTERNAL COMBUSTION ENGINE INSPECTOR TROPONIN I STAT 04/07/2018 10:00 PM INTERNAL COMBUSTION ENGINE INSPECTOR XR CHEST 1 VIEW STAT 04/07/2018 PORTABLE/BEDSIDE 4:40 PM INTERNAL COMBUSTION ENGINE INSPECTOR CT BRAIN WITHOUT IV STAT 04/07/2018 CONTRAST 4:30 PM INTERNAL COMBUSTION ENGINE INSPECTOR CBC W/PLT COUNT & AUTO STAT 04/07/2018 DIFFERENTIAL 4:08 PM INTERNAL COMBUSTION ENGINE INSPECTOR B-TYPE NATRIURETIC FACTOR STAT 04/07/2018 (BNP) 4:08 PM INTERNAL COMBUSTION ENGINE INSPECTOR PT/APTT STAT 04/07/2018 4:08 PM INTERNAL COMBUSTION ENGINE INSPECTOR CBC W/PLT COUNT & AUTO STAT 04/07/2018 DIFFERENTIAL 4:08 PM INTERNAL COMBUSTION ENGINE INSPECTOR TROPONIN I STAT 04/07/2018 4:08 PM INTERNAL COMBUSTION ENGINE INSPECTOR MAGNESIUM STAT 04/07/2018 4:08 PM INTERNAL COMBUSTION ENGINE INSPECTOR BASIC METABOLIC PANEL (7) STAT 04/07/2018 4:08 PM INTERNAL COMBUSTION ENGINE INSPECTOR ECG 12-LEAD Routine 04/07/2018 3:57 PM INTERNAL COMBUSTION ENGINE INSPECTOR Procedure Note - Interface, External Ris In - 04/07/2018 6:28 PM INTERNAL COMBUSTION ENGINE INSPECTOR Ventricula r Rate 60 BPM Atrial Rate 375 BPM QRS Duration 146 ms Q-T Interval 464 ms QTC Calculatio n(Bazett) 464 ms R [place] -74 degrees T [place] 97 degrees Electroni c ventricula r pacemaker No previous ECGs available ECG 12-LEAD STAT 04/07/2018 3:57 PM INTERNAL COMBUSTION ENGINE INSPECTOR after 08/15/2017 Results * RHYTHM STRIP - SCAN (04/17/2018 2:00 PM INTERNAL COMBUSTION ENGINE INSPECTOR) Narrative Performed At * Prothrombin time/INR (04/13/2018 5:01 AM INTERNAL COMBUSTION ENGINE INSPECTOR) Only the most recent of 6 results within the time period is included. Protime 21.5 (H) 11.7 - 14.7 seconds [facility] INR 1.9 <=5.9 [facility] Specimen Blood - Arm, Right Narrative Performed At RECOMMENDED COUMADIN/WARFARIN INR THERAPY RANGES [facility] STANDARD DOSE: 2.0 - 3.0 Includes: PROPHYLAXIS for venous thrombosis, [facility] systemic embolization; TREATMENT for venous thrombosis and/or pulmonary embolus. HIGH RISK: Target INR is 2.5-3.5 for patients with mechanical heart valves. Performing Organization Address City/State/Zipcode Phone Number [facility] [address] [place] [address] [facility] * CBC with platelet count + automated diff (04/11/2018 5:00 AM INTERNAL COMBUSTION ENGINE INSPECTOR) Only the most recent of 4 results within the time period is included. WBC 7.9 3.5 - 10.5 K/L [facility] RBC 3.72 (L) 3.93 - 5.22 M/L [facility] Hemoglobin 11.4 11.2 - 15.7 GM/DL [facility] Hematocrit 34.6 34.1 - 44.9 % [facility] MCV 93.0 79.4 - 94.8 fL [facility] MCH 30.6 25.6 - 32.2 pg [facility] MCHC 32.9 32.2 - 35.5 GM/DL [facility] RDW 13.7 11.7 - 14.4 % [facility] Platelets 247 150 - 450 K/CU MM [facility] MPV 9.5 9.4 - 12.3 fL [facility] nRBC 0 0 - 0 /100 WBC [facility] % Neutros 55 % [facility] % Lymphs 30 % [facility] % Monos 9 % [facility] % Eos 5 % [facility] % Baso 1 % [facility] # Neutros 4.35 1.56 - 6.13 K/L [facility] # Lymphs 2.38 1.18 - 3.74 K/L [facility] # Monos 0.69 (H) 0.24 - 0.36 K/L [facility] # Eos 0.43 (H) 0.04 - 0.36 K/L [facility] # Baso 0.07 0.01 - 0.08 K/L [facility] Immature 0 0 - 1 % [facility] Granulocytes-Relative [facility] Specimen Blood Performing Organization Address City/[facility]/Zipcode Phone Number [facility] [address] [address], [place] [id number] [facility] * Basic Metabolic Panel (04/11/2018 5:00 AM INTERNAL COMBUSTION ENGINE INSPECTOR) Only the most recent of 4 results within the time period is included. Sodium 132 (L) 136 - 145 meq/L [facility] Potassium 4.2 3.5 - 5.1 meq/L [facility] Chloride 99 98 - 107 meq/L [facility] CO2 25 22 - 29 meq/L [facility] BUN 15 7 - 21 mg/dL [facility] Creatinine 0.83 0.57 - 1.25 mg/dL [facility] Glucose 88 70 - 105 mg/dL [facility] Calcium 8.8 8.4 - 10.2 mg/dL [facility] EGFR 65Comment: ESTIMATED GFR IS mL/min/1.73 sq m [facility] NOT ACCURATE CREATININE [facility] CLEARANCE IN PREDICTING GLOMERULAR FILTRATION RATE. ESTIMATED GFR IS NOT APPLICABLE FOR DIALYSIS PATIENTS. Specimen Blood Performing Organization Address City/[facility]/Zipcode Phone Number [facility] [address] [place] [address], [place] [phone] [facility] * ECHOCARDIOGRAM REPORT - SCAN (2018 10:20 AM INTERNAL COMBUSTION ENGINE INSPECTOR) Narrative Performed At * CT lower extremity without IV contrast right (2018 4:28 AM INTERNAL COMBUSTION ENGINE INSPECTOR) Narrative Performed At FINAL REPORT [facility] INDICATION: 88-year-old female with right hip pain after trauma. COMPARISON: Right hip radiograph one view April 08, 2018 TECHNIQUE: CT of the right lower extremity (hip) was performed WITHOUT contrast. The exam was performed according to our department dose-optimization protocol, which includes automated exposure control, adjustments of mA and kV according to patient size. Iterative reconstructions are also sometimes employed. FINDINGS / IMPRESSION: There is an incomplete fracture of the anterior [...] femoral artery is noted. Signed: Adal Ramírez MD Report Verified Date/Time:2018 08:17:16 Reading Location: [facility] C013X Ortho Consult Reading Room Procedure Note Interface, External Ris In - 2018 8:19 AM INTERNAL COMBUSTION ENGINE INSPECTOR FINAL REPORT INDICATION: 88-year-old female with right hip pain after trauma. COMPARISON: Right hip radiograph one view April 08, 2018 TECHNIQUE: CT of the right lower extremity (hip) was performed WITHOUT contrast. The exam was performed according to our department dose-optimization protocol, which includes automated exposure control, adjustments of mA and kV according to patient size. Iterative reconstructions are also sometimes employed. FINDINGS / IMPRESSION: There is an incomplete fracture of the anterior [...] femoral artery is noted. Signed: Adal Ramírez MD Report Verified Date/Time: 2018 08:17:16 Reading Location: [facility] C013X Ortho Consult Reading Room Performing Organization Address City/State/Zipcode Phone Number [facility] * CT brain without IV contrast (04/08/2018 9:36 PM INTERNAL COMBUSTION ENGINE INSPECTOR) Only the most recent of 2 results within the time period is included. Narrative Performed At FINAL REPORT [facility] EXAMINATIONNONCONTRAST HEAD CT SCAN CLINICAL HISTORY:Headache, traumatic injury. [...] hemorrhage, mass effect, cerebral edema, midline shift, hydrocephalus or abnormal extra-axial fluid collection. Although there are no definite findings to suggest evolving ischemic injury, see the is not sensitive for the detection of early or small infarcts. Minimal mucosal thickening is again noted involving the ethmoid air cells. The tympanic cavities and mastoid air cells are well pneumatized. There are bilateral minimally displaced mildly depressed nasal bone fractures, chronicity indeterminate. Mandibular condyles project anatomically. 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 IMPRESSION: No specific evidence of an acute intracranial process. Bilateral nasal bone fractures, chronicity indeterminate. Chronic findings as detailed above. Signed: Zeferino Rodriguez MD Report Verified Date/Time:04/08/2018 21:42:20 Reading Location: [address] Reading Room Procedure Note Interface, External Ris In - 04/08/2018 9:44 PM INTERNAL COMBUSTION ENGINE INSPECTOR FINAL REPORT EXAMINATION NONCONTRAST HEAD CT SCAN CLINICAL [...] hemorrhage, mass effect, cerebral edema, midline shift, hydrocephalus or abnormal extra-axial fluid collection. Although there are no definite findings to suggest evolving ischemic injury, see the is not sensitive for the detection of early or small infarcts. Minimal mucosal thickening is again noted involving the ethmoid air cells. The tympanic cavities and mastoid air cells are well pneumatized. There are bilateral minimally displaced mildly depressed nasal bone fractures, chronicity indeterminate. Mandibular condyles project anatomically. 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 IMPRESSION: No specific evidence of an acute intracranial process. Bilateral nasal bone fractures, chronicity indeterminate. Chronic findings as detailed above. Signed: Zeferino Rodriguez MD Report Verified Date/Time: 04/08/2018 21:42:20 Reading Location: [address] Reading Room Performing Organization Address City/State/Zipcode Phone Number [facility] * XR chest 1 view portable / bedside (04/08/2018 8:49 PM INTERNAL COMBUSTION ENGINE INSPECTOR) Only the most recent of 2 results within the time period is included. Narrative Performed At FINAL REPORT [facility] Chest, 1 view, 04/08/2018 8:50 PM. History: Fall. Comparison: 04/07/2018. Discussion:The cardiomediastinal silhouette and pulmonary vasculature are within normal limits for a portable exam. There is calcification of the aortic knob. There is biapical pleural thickening. Linear opacities are present at the right lung base. The lungs are otherwise clear without evidence of consolidation or effusion. There is no evidence of a pneumothorax. Left subclavian single lead pacer is present. The soft tissues and osseous structures are intact. IMPRESSION: No acute cardiopulmonary abnormality. Signed: Arnulfo Tavares MD Report Verified Date/Time:04/08/2018 20:55:25 Reading Location: [address] Reading Room Procedure Note Interface, External Ris In - 04/08/2018 8:57 PM INTERNAL COMBUSTION ENGINE INSPECTOR FINAL REPORT Chest, 1 view, 04/08/2018 8:50 PM. History: Fall. Comparison: 04/07/2018. Discussion: The cardiomediastinal silhouette and pulmonary vasculature are within normal limits for a portable exam. There is calcification of the aortic knob. There is biapical pleural thickening. Linear opacities are present at the right lung base. The lungs are otherwise clear without evidence of consolidation or effusion. There is no evidence of a pneumothorax. Left subclavian single lead pacer is present. The soft tissues and osseous structures are intact. IMPRESSION: No acute cardiopulmonary abnormality. Signed: Arnulfo Tavares MD Report Verified Date/Time: 04/08/2018 20:55:25 Reading Location: [facility] [address] C013W Consult Reading Room Performing Organization Address City/State/Zipcode Phone Number [facility] * XR hip 1 view right (04/08/2018 8:49 PM INTERNAL COMBUSTION ENGINE INSPECTOR) Narrative Performed At FINAL REPORT [facility] Right hip 1 view 04/08/2018 at 2030 CLINICAL HISTORY: post fall COMPARISON: None available [...] abnormality, further evaluation with CT is recommended. Signed: Andrzej Monson MD Report Verified Date/Time:04/08/2018 21:20:36 Reading Location: [facility] Radiology Reading Room Procedure Note Interface, External Ris In - 04/08/2018 9:22 PM INTERNAL COMBUSTION ENGINE INSPECTOR FINAL REPORT Right hip 1 view 04/08/2018 at 2030 CLINICAL HISTORY: post fall COMPARISON: None available [...] abnormality, further evaluation with CT is recommended. Signed: Andrzej Monson MD Report Verified Date/Time: 04/08/2018 21:20:36 Reading Location: [facility] Radiology Reading Room Performing Organization Address City/State/Zipcode Phone Number [facility] * EEG AWAKE AND DROWSY (04/08/2018 2:37 PM INTERNAL COMBUSTION ENGINE INSPECTOR) Narrative Performed At Date(s) of EE04/08/2018 [facility] DATE OF REPORT: 04/08/2018 ACC: [id number] EEG Number: [id number] Start time: 2:05 PM Stop time: 2:26 PM ICD-10: R56.9 CPT Code: 36814 HISTORY: 87 year old female with history [...] EEG recordings. Gill Paul MD Neurophysiology Attending Procedure Note Interface, External Ris In - 04/08/2018 2:48 PM INTERNAL COMBUSTION ENGINE INSPECTOR Date(s) of EE04/08/2018 DATE OF REPORT: 04/08/2018 ACC: [id number] EEG Number: [id number] Start time: 2:05 PM Stop time: 2:26 PM ICD-10: R56.9 CPT Code: 26142 HISTORY: 87 year old female with history [...] EEG recordings. Gill Paul MD Neurophysiology Attending Performing Organization Address City/State/Zipcode Phone Number [facility] * 2D Echo W/Doppler(CW/PW/Color) (04/08/2018 12:47 PM INTERNAL COMBUSTION ENGINE INSPECTOR) Ejection Fraction [facility] ECHO [facility]ARTLAB [facility] Narrative Performed At Transthoracic Echocardiography Report (TTE) [facility] ECHO HEARTLAB Demographics [facility] Patient NameMARIANELA VALENCIA Date of Study 04/08/2018 [facility] Visit [id number] Unknown Room Number 2423 Number Date of 1930Referring Physician Age 87 year(s)Transplant Nurse Zeferino Ortiz [facility] Slip Cover Cutter Raji Kidd Physician Procedure Type of Study TTE procedure:2DECHO W DOPPLER(CW/PW/COLOR) (STAT) Indications:Acute Chest Pain/ Suspected CAD. Clinical History Angina Atrial Fibrillation/flutter Diabetes Hyperlipidemia Hypertension Renal Disease Pacemaker HGB 10.8 HCT 32.4 % Height: 61 inches Weight: 67.13 kg (148 lbs) BSA: 1.66 m^2 BMI: 27.96 kg/m^2 HR: 60 bpm BP: 148/67 mmHg Summary Estimated LVEF by qualitative assessment is normal (55-60%) LA size is severely enlarged (>48 ml/m2) . RA pacing wire is visualized . RA size is dilated. Fkff-ud-acurpqah mitral regurgitation. Ruop-ij-ddftwlbr tricuspid regurgitation. Estimated peak systolic PA pressure is 45-50 mmHg . No significant pericardial effusion is visualized. Signature Findings Left Ventricle The left ventricle is chamber size (by PSLAX dimension) is normal (female - LVIDd 3.8-5.2cm) . Normal LV wall thickness. All of the LV segments contract normally . Estimated LVEF by qualitative assessment is normal (55-60%) . Global LV systolic function normal . Left AtriumLA size is severely enlarged (>48 ml/m2) . Right VentricleNormal right ventricle structure and function. Right Atrium RA pacing wire is visualized . RA size is dilated. Aortic Valve Mild AoV cusp thickening. Mild AoV cusp calcification. Mitral Valve Mild MV leaflet thickening. Mild mitral annular calcification. Xmzr-zw-dddbgbcn mitral regurgitation. Tricuspid TriqoLkty-yw-galldnaq tricuspid regurgitation. Estimated peak systolic PA pressure is 45-50 mmHg . Pulmonic Valve Normal PV structure and function by limited views and Doppler. Mild pulmonary regurgitation. AortaAortic root size (SInus of Valsalva diameter) is normal . PericardiumNo significant pericardial effusion is visualized. IVC/SVC/PA/PV/PleuralThe estimated RA pressure by IVC dynamics 11-15mmHg . Chambers/Structures Left Atrium LA Dimension: 5.38 cmLA Area: 28.76 cm^2 LA Volume: 98.9 ml LA Vol. Index: 60 ml/m^2 Left Ventricle LVIDd: 4.43 cm LV Septum Diastolic: 0.87 cm LV PW Diastolic: 0.85 cm LVEDV Delatorre's:74.75 ml LVESV Delatorre's:31.12 ml LVEF Delatorre's: 58.4 %LVEDVI: 45 ml/m^2 LVESVI: 19 ml/m^2 LVOT Diameter: 2 cm Aorta Ao Root S of Loren.: 2.95 cm Doppler/Quantitative Measurements Aortic Valve Peak Velocity: 1.34 m/sMean Velocity: 0.96 m/s Peak Gradient: 7.16 mmHg Mean Gradient: 4.18 mmHg AV Area (continuity): 2.33 cm^2 AV VTI: 29.01 cm AV DVI: 0.74 LVOT Peak Velocity: 0.95 m/s Peak Gradient: 3.61 mmHg Mean Velocity: 0.65 m/s Mean Gradient: 1.91 mmHg LVOT Diameter: 2 cm LVOT VTI: 21.57 cm LVOT Area: 3.14 cm^2LVOT SV:67.73 ml LVOT CO: 4.06 l/min LVOT CI: 2.45 l/min/m^2 Procedure Note Interface, External Ris In - 2018 9:50 AM INTERNAL COMBUSTION ENGINE INSPECTOR Transthoracic Echocardiography Report (TTE) Demographics Patient Name MARIANELA VALENCIA Date of Study 04/08/2018 FA Gender Female Visit Number [id number] Race Unknown Room Number [id number] Number Date of 1930 Referring Physician Age 87 year(s) Transplant Nurse Zeferino Ortiz [facility] Slip Cover Cutter Raji Guaman Interpreting Dewayne Kidd Physician Procedure Type of Study TTE procedure:2DECHO W DOPPLER(CW/PW/COLOR) (STAT) Indications:Acute Chest Pain/ Suspected CAD. Clinical History Angina Atrial Fibrillation/flutter Diabetes Hyperlipidemia Hypertension Renal Disease Pacemaker HGB 10.8 HCT 32.4 % Height: 61 inches Weight: 67.13 kg (148 lbs) BSA: 1.66 m^2 BMI: 27.96 kg/m^2 HR: 60 bpm BP: 148/67 mmHg Summary Estimated LVEF by qualitative assessment is normal (55-60%) LA size is severely enlarged (>48 ml/m2) . RA pacing wire is visualized . RA size is dilated. Gura-uq-oahgwrke mitral regurgitation. Sibs-ra-hfzgqgsb tricuspid regurgitation. Estimated peak systolic PA pressure is 45-50 mmHg . No significant pericardial effusion is visualized. Signature Findings Left Ventricle The left ventricle is chamber size (by PSLAX dimension) is normal (female - LVIDd 3.8-5.2cm) . Normal LV wall thickness. All of the LV segments contract normally . Estimated LVEF by qualitative assessment is normal (55-60%) . Global LV systolic function normal . Left Atrium LA size is severely enlarged (>48 ml/m2) . Right Ventricle Normal right ventricle structure and function. Right Atrium RA pacing wire is visualized . RA size is dilated. Aortic Valve Mild AoV cusp thickening. Mild AoV cusp calcification. Mitral Valve Mild MV leaflet thickening. Mild mitral annular calcification. Lhcv-ob-rvjongjo mitral regurgitation. Tricuspid Valve Pjen-ws-evllttma tricuspid regurgitation. Estimated peak systolic PA pressure is 45-50 mmHg . Pulmonic Valve Normal PV structure and function by limited views and Doppler. Mild pulmonary regurgitation. Aorta Aortic root size (SInus of Valsalva diameter) is normal . Pericardium No significant pericardial effusion is visualized. IVC/SVC/PA/PV/Pleural The estimated RA pressure by IVC dynamics 11-15mmHg . Chambers/Structures Left Atrium LA Dimension: 5.38 cm LA Area: 28.76 cm^2 LA Volume: 98.9 ml LA Vol. Index: 60 ml/m^2 Left Ventricle LVIDd: 4.43 cm LV Septum Diastolic: 0.87 cm LV PW Diastolic: 0.85 cm LVEDV Delatorre's:74.75 ml LVESV Delatorre's:31.12 ml LVEF Delatorre's: 58.4 % LVEDVI: 45 ml/m^2 LVESVI: 19 ml/m^2 LVOT Diameter: 2 cm Aorta Ao Root S of Loren.: 2.95 cm Doppler/Quantitative Measurements Aortic Valve Peak Velocity: 1.34 m/s Mean Velocity: 0.96 m/s Peak Gradient: 7.16 mmHg Mean Gradient: 4.18 mmHg AV Area (continuity): 2.33 cm^2 AV VTI: 29.01 cm AV DVI: 0.74 LVOT Peak Velocity: 0.95 m/s Peak Gradient: 3.61 mmHg Mean Velocity: 0.65 m/s Mean Gradient: 1.91 mmHg LVOT Diameter: 2 cm LVOT VTI: 21.57 cm LVOT Area: 3.14 cm^2 LVOT SV:67.73 ml LVOT CO: 4.06 l/min LVOT CI: 2.45 l/min/m^2 Performing Organization Address [facility] Phone Number [facility] ECHO [facility]ART[facility] * Troponin I (04/08/2018 9:19 AM INTERNAL COMBUSTION ENGINE INSPECTOR) Only the most recent of 3 results within the time period is included. Troponin I 0.04 (H) 0.00 - 0.03 ng/mL [facility] Specimen Blood - Arm, Left Performing Organization Address [facility] [place] [address] [facility] * Creatine Kinase (CK) (04/08/2018 9:19 AM INTERNAL COMBUSTION ENGINE INSPECTOR) Total CK 75 29 - 200 U/L [facility] Specimen Blood - Arm, Left Performing Organization Address [facility] Phone Number [address] [address] [facility] * Fasting lipid panel (04/08/2018 4:06 AM INTERNAL COMBUSTION ENGINE INSPECTOR) Triglycerides 70Comment: Specimen slightly mg/dL [facility] Cholesterol 130Comment: Specimen slightly mg/dL [facility] HDL 50 mg/dL [facility] LDL Calculated 66 mg/dL [facility] Specimen Blood Narrative Performed At Triglyceride Reference Range: [facility] Low Risk <150 [facility] [id number] High Risk 200-499 Very High Risk>=500 Cholesterol Reference Range: Low Risk <200 [id number] High Risk>240 HDL Cholesterol Reference Range: Low Risk >=60 High Risk <40 LDL Cholesterol Reference Range: Optimal<100 Near [id number] Very High >=190 Fasting Performing Organization Address [facility] [place] [address] [facility] * Urinalysis w/ Microscopic (04/07/2018 10:22 PM INTERNAL COMBUSTION ENGINE INSPECTOR) Color, UA Yellow [facility] Clarity, UA Clear [facility] Specific Clifford, UA 1.006 1.001 - 1.035 [facility] pH, UA 6.5 5.0 - 8.0 [facility] Protein, UA Negative Negative [facility] Glucose, UA Negative Negative [facility] Ketones, UA Negative Negative [facility] Bilirubin, UA Negative Negative [facility] Blood, UA Negative Negative [facility] Nitrite, UA Negative Negative [facility] Leukocytes, UA Small (A) Negative [facility] Urobilinogen, UA 0.2 0.2 - 1.0 mg/dL [facility] RBC, UA 1 /HPF [facility] WBC, UA 2 /HPF [facility] Squam Epithel, UA 1 /HPF [facility] Specimen Source Urine, Voided [facility] Specimen Urine - Urine, Voided Performing Organization Address City/[facility]/Zipcode Phone Number [address] [address] [facility] * PT/PTT (04/07/2018 4:08 PM INTERNAL COMBUSTION ENGINE INSPECTOR) Protime 23.6 (H) 11.7 - 14.7 seconds [facility] INR 2.1 <=5.9 [facility] PTT 35.1 22.5 - 36.0 seconds [facility] Specimen Blood - Arm, Right Narrative Performed At RECOMMENDED COUMADIN/WARFARIN INR THERAPY RANGES [facility] STANDARD DOSE: 2.0 - 3.0 Includes: PROPHYLAXIS for venous thrombosis, [facility] systemic embolization; TREATMENT for venous thrombosis and/or pulmonary embolus. HIGH RISK: Target INR is 2.5-3.5 for patients with mechanical heart valves. Performing Organization Address [facility] Phone Number [address] * B-type Natriuretic Factor (BNP) (04/07/2018 4:08 PM INTERNAL COMBUSTION ENGINE INSPECTOR) BNP 576 (H) 0 - 100 pg/mL [facility] Specimen Blood - Arm, Right Performing Organization Address [facility] [place] [address] [phone] [place] [address] * Magnesium (04/07/2018 4:08 PM INTERNAL COMBUSTION ENGINE INSPECTOR) Magnesium 2.1 1.6 - 2.6 mg/dL [facility] Specimen Blood - Arm, Right Performing Organization Address [facility] Phone Number [address] [address] [phone] * ECG 12 lead (04/07/2018 3:57 PM INTERNAL COMBUSTION ENGINE INSPECTOR) Narrative Performed At Ventricular Rate 60 BPM GE MUSE Atrial Rate 375 BPM QRS Duration 146 ms Q-T Interval 464 ms QTC Calculation(Bazett) 464 ms R [place] -74 degrees T [place] 97 degrees Electronic ventricular pacemaker No previous ECGs available Confirmed by MD Elliott Roberto ([id number]) on 04/08/2018 9:27:56 AM Procedure Note Interface, External Ris In - 04/08/2018 9:28 AM INTERNAL COMBUSTION ENGINE INSPECTOR Ventricular Rate 60 BPM Atrial Rate 375 BPM QRS Duration 146 ms Q-T Interval 464 ms QTC Calculation(Bazett) 464 ms R [place] -74 degrees T [place] 97 degrees Electronic ventricular pacemaker No previous ECGs available Confirmed by MD Elliott Roberto ([id number]) on 04/08/2018 9:27:56 AM Performing Organization Address City/State/Zipcode Phone Number [place] after 08/15/2017 Insurance Payer Benefit Subscriber ID Type Phone Address Plan / Group [employer] xxxxxxxxx Maps HMO ALL Contracted Advance Directives For more information, please contact: [facility] [address] [place] [address] Date Inactivated Comments Code Status Date Activated Full Code 04/07/2018 9:17 PM This code status was determined by: Patient
== END 2018-08-16 19:00 | disposition short-term general hospital (02) ==
LOC: ER 17:26
DX: H57.13 Ocular pain, bilateral (principal)